=== PATIENT | female | born 1950 | race Hispanic/Latino ===

== ENCOUNTER → 2017-06-01 | Outpatient (CLI) | payer OTHER | END | disposition home or self-care (01) | LOC: RAH 09:25 | PROVIDERS: ATTEND Internal Medicine Hematology & Oncology | DX: R92.8 Other abnormal and inconclusive findings on diagnostic imaging of breast (principal); Z85.3 Personal history of malignant neoplasm of breast | CPT/HCPCS: 77065 ==

== ENCOUNTER → 2018-06-05 | Outpatient (CLI) | payer OTHER | END | disposition home or self-care (01) | LOC: RAH 10:17 | PROVIDERS: ATTEND Internal Medicine Hematology & Oncology | DX: R92.8 Other abnormal and inconclusive findings on diagnostic imaging of breast (principal); Z90.12 Acquired absence of left breast and nipple; Z85.3 Personal history of malignant neoplasm of breast | CPT/HCPCS: 77065 ==

== ENCOUNTER → 2019-02-28 | Outpatient (CLI) | payer OTHER ==
[~2019-02-28] VITALS: Ht 149.9 cm; Wt 82.6 kg
[~2019-02-28] MED LIST: REGADENOSON 0.4 MG/5 ML PF SYG IVP SCH
== END | disposition home or self-care (01) ==
LOC: SHCH 08:05
PROVIDERS: ATTEND Internal Medicine Cardiovascular Disease
DX: I20.9 Angina pectoris, unspecified (principal)
CPT/HCPCS: 78452; 93017; 96374; A9500 ×2; J2785

== ENCOUNTER → 2019-06-11 | Outpatient (CLI) | payer OTHER | END | disposition home or self-care (01) | LOC: RAH 09:20 | PROVIDERS: ATTEND Internal Medicine Hematology & Oncology | DX: R92.8 Other abnormal and inconclusive findings on diagnostic imaging of breast (principal); Z90.12 Acquired absence of left breast and nipple | CPT/HCPCS: 77065 ==

== ENCOUNTER → 2020-06-17 | Outpatient (CLI) | payer MEDICARE, OTHER | END | disposition home or self-care (01) | LOC: RAH 11:02 | PROVIDERS: ATTEND Internal Medicine Hematology & Oncology | DX: C50.919 Malignant neoplasm of unspecified site of unspecified female breast (principal); Z85.3 Personal history of malignant neoplasm of breast | CPT/HCPCS: 77065 ==

== ENCOUNTER → 2022-07-01 | Outpatient (CLI) | payer MEDICARE | END | disposition home or self-care (01) | LOC: RAH 12:39 | PROVIDERS: ATTEND Internal Medicine Hematology & Oncology | DX: R92.2 Inconclusive mammogram (principal); Z85.3 Personal history of malignant neoplasm of breast | CPT/HCPCS: 77065 ==

== ENCOUNTER → 2023-07-03 | Outpatient (CLI) | payer MEDICARE | END | disposition home or self-care (01) | LOC: RAH 09:52 | PROVIDERS: ATTEND Internal Medicine Hematology & Oncology | DX: R92.30 Dense breasts, unspecified (principal); C50.919 Malignant neoplasm of unspecified site of unspecified female breast; Z85.3 Personal history of malignant neoplasm of breast | CPT/HCPCS: 77065 ==

== ENCOUNTER → 2024-07-04 | Outpatient (CLI) | payer MEDICARE ==
--- NOTE | 2024-07-04 11:12 | HMCIMG ---
Exam Type: MAMMO DX UNILATERAL RIGHT Clinical Information: HX OF BREAST CA Comparison: None Technique: Mammogram with CAD was performed with CC and MLO projections. CAD shows no worrisome regions. FINDINGS: The right breast is heterogeneously dense, which may obscure small masses. No dominant mass or suspicious microcalcification identified. There is no nipple retraction or skin thickening. Benign-appearing calcifications are seen. CAD shows no worrisome regions. IMPRESSION: 1. No mammographic signs of malignancy. 2. Routine follow-up recommended. CATEGORY 2: BENIGN FINDINGS Note: A negative x-ray should not delay biopsy if a dominant or clinically suspicious mass is present, since 8-10% of cancers are not identified by mammography. Dense breasts may obscure an underlying neoplasm.
== END | disposition home or self-care (01) ==
LOC: RAH 08:46
PROVIDERS: ATTEND Internal Medicine Hematology & Oncology
DX: R92.331 Mammographic heterogeneous density, right breast (principal)
CPT/HCPCS: 77065

== ENCOUNTER → 2024-10-24 | Outpatient (CLI) | payer MEDICARE ==
--- NOTE | 2024-10-28 22:14 | HMCIMG ---
STUDY PERFORMED: BD Bone Density DEXA Axial Skeleton TECHNIQUE: [employer] Dual Energy X-ray absorptiometry (DEXA) COMPARISON: None available. FINDINGS: Lumbar Spine L1-L4 Density(g/cm2): 0.837 T-score: -1.9 Z-score: 0.5 Left Femoral Neck Density(g/cm2): 0.774 T-score: -0.8 Z-score: 1.2 Total Proximal Femur Density(g/cm2): 0.973 T-score: 0.1 Z-score: 1.9 INTERPRETATION: The bone mineral density in the lumbar spine is in the osteopenia range. The bone mineral density of the left hip is in the normal range. FRAX 10 year probability of fracture: Major osteoporotic fracture: 4.6% Hip fracture: 0.6% COMMENTS: T-scores are a means of evaluating bone mineral density relative to young adult population and are defined as the number of standard deviations of the mean. T-scores at or above -1.0 are considered normal. T-scores between -1.0 and -2.5 are consistent with osteopenia. T-scores at or below -2.5 are consistent with osteoporosis. T-score values below -2.0 are thought to be associated with an increased risk of fracture. Z-scores are related to age-matched controls. The study does not distinguish osteoporosis from other causes of decreased bone density such as osteomalacia or multiple myeloma. Therefore, if clinically indicated or Z-scores are less than -2.0, additional metabolic studies may be appropriate. RECOMMENDATIONS: National Osteoporosis Foundation (NOF) guidelines recommend initiating therapy to reduce fracture risk in women with BMD: T-Score below -2 SD T-Score Below -1.5 with other risks factors present NOF guidelines recommend all people with T score of -2.5 and below (osteoporosis) consider taken osteoporosis medication. The NOF recommends adults under age 50 need 1,000 mg of calcium and 400-800 IU of vitamin D daily. Adults 50 and over need 1,200 mg of calcium and 800-1000 IU of vitamin D daily. Effective therapies for the prevention of osteoporosis include bisphosphonates (Fosamax and Actonel) and Evista. Hormone therapy may be an option based on review of risks and benefit of treatment. People with diagnosed cases of osteoporosis or at high risk for fracture should have regular bone mineral density tests. For patients eligible for Medicare, routine testing is allowed once every 2 years. The testing frequency can be increased to one year for patients who have rapidly progressing disease, those who are receiving or discontinuing medical therapy to restore bone mass, or have additional risk factors. /[place]
== END | disposition home or self-care (01) ==
LOC: RAH 13:30
PROVIDERS: ATTEND Internal Medicine
DX: M85.88 Other specified disorders of bone density and structure, other site (principal); M81.0 Age-related osteoporosis without current pathological fracture
CPT/HCPCS: 77080